=== PATIENT | female | born 1995 | race Asian ===

== ENCOUNTER 2019-09-19 19:09 | Emergency (ER) | payer OTHER ==
[2019-09-19 19:58] VITALS: BP 110/68; PULSE 86; TEMP 98.3; BMI 21.7
--- NOTE | 2019-09-19 20:52 | PDOC ---
History of Present Illness - General Chief Complaint: Hematuria Stated Complaint: HEMATURIA Time Seen by Provider: 09/19/19 20:27 - History of Present Illness Initial Comments: 09/19/19 20:51 23-year-old female without comorbidities presents with dysuria x1 day no systemic symptoms Past History - Past Medical History Allergies/Adverse Reactions: Allergies Allergy/AdvReac Type Severity Reaction Status Date / Time No Known Allergies Allergy Verified 09/19/19 19:57 COPD: No - Psycho Social/Smoking Cessation Hx Smoking History: Never smoked Have you smoked in the past 12 months: No Information on smoking cessation initiated: No Hx Alcohol Use: No Drug/Substance Use Hx: No Review of Systems - Review of Systems Constitutional: No: Fever : Yes: Burning, Dysuria, Frequency. No: Discharge, Hematuria *Physical Exam - Vital Signs Last Vital Signs Temp Pulse Resp BP Pulse Ox 98.3 F 86 18 110/68 100 09/19/19 19:56 09/19/19 19:56 09/19/19 19:56 09/19/19 19:56 09/19/19 19:56 - Physical Exam 09/19/19 20:51 GENERAL: The patient is awake, alert, and fully oriented, in no acute distress. HEAD: Normal with no signs of trauma. EYES: sclera anicteric, conjunctiva clear. ENT: Ears normal tympanic membranes normal oropharynx clear uvula midline NECK: Normal range of motion EXTREMITIES: Normal range of motion, no edema. No clubbing or cyanosis. No cords, erythema, or tenderness. NEUROLOGICAL: Cranial nerves II through XII grossly intact. PSYCH: Normal mood, normal affect. SKIN: Warm, Dry, normal turgor, no rashes or lesions noted. Medical Decision Making - Medical Decision Making 09/19/19 20:57 We will treat for UTI with Macrobid follow-up with primary care physician Discharge - Discharge Information Problems reviewed: Yes Clinical Impression/Diagnosis: UTI (urinary tract infection) Condition: Stable Disposition: HOME - Admission No - Follow up/Referral Referrals: Jesús Sandhu MD [Staff Physician] - - Patient Discharge Instructions Additional Instructions: Please take the antibiotics as directed. Return to the emergency room for worsening symptoms. Without fail follow-up with your primary care physician in 1 to 2 days for further evaluation and treatment options. The Pyridium, will turn your urine orange this is normal on this medication. - Post Discharge Activity
[2019-09-19 20:56] LABS: EPI CELLS 0 /HPF (0-5/HPF); HYALINE CASTS 1 /lpf (0-8); URINE APPEARANCE CLEAR; URINE BACTERIA 608.4 /hpf (NEGATIVE); URINE BILIRUBIN NEGATIVE (NEGATIVE); URINE COLOR YELLOW; URINE GLUCOSE (UA) NEGATIVE (NEGATIVE); URINE KETONE NEGATIVE (NEGATIVE); URINE LEUK ESTERASE 2+ (NEGATIVE); URINE NITRITE NEGATIVE (NEGATIVE); URINE PROTEIN NEGATIVE (NEGATIVE); URINE RBC 12 /hpf (0-4); URINE UROBILINOGEN 0.2 mg/dL (0.2-1.0); URINE WBC 84 /hpf (0-5)
== END 2019-09-19 23:20 | disposition home or self-care (01) ==
LOC: JERFT 19:09
DX: N39.0 Urinary tract infection, site not specified (principal)
CPT/HCPCS: 81003; 84703; 87086; 87186; 99283-25

== ENCOUNTER 2024-01-20 16:22 | Emergency (ER) | payer OTHER ==
[2024-01-20 16:34] VITALS: BP 110/68; PULSE 92; RESP 18; TEMP 97.9; BMI 21.7
[2024-01-20] MEDS: ACETAMINOPHEN 1000 MG/100 ML BAG IVPB ONE (17:50)
[2024-01-20] MEDS: SODIUM CHLORIDE 0.9% 500 ML INFUS.BAG IV ONE (17:50)
[2024-01-20] MEDS: METOCLOPRAMIDE HCL INJECTION 10 MG/2 ML VIAL IVPUSH ONE (17:50)
[2024-01-20] MEDS ORDERED: ACETAMINOPHEN INJECTION 100 ML IVPB ONE (17:58)
[2024-01-20] MEDS ORDERED: METOCLOPRAMIDE HCL INJECTION 10 MG/2 ML VIAL ONE (17:58)
[2024-01-20 18:37] LABS: BASO % 0.5 % (0-2.0); EOS % 12.3 % (0-4.5); HEMATOCRIT 39.4 % (32.4-45.2); HEMOGLOBIN 12.8 GM/dL (10.7-15.3); LYMPH % 32.3 % (8-40); MCH 23.9 pg (25.7-33.7); MCHC 32.4 g/dl (32.0-36.0); MEAN CELL VOLUME 73.6 fl (80-96); MEAN PLT VOLUME 7.4 fl (7.5-11.1); MONO % 12.6 % (3.8-10.2); NEUT % 42.3 % (42.8-82.8); PLATELET COUNT 297 10^3/uL (134-434); RBC 5.35 M/mm3 (3.60-5.2); RDW 14.7 % (11.6-15.6); WHITE BLOOD COUNT 9.5 K/mm3 (4.0-10.0)
[2024-01-20 18:55] LABS: CALCIUM 9.1 mg/dL (8.5-10.1)
[2024-01-20 18:56] LABS: ALBUMIN 3.7 g/dl (3.4-5.0); BLOOD UREA NITROGEN 8.3 mg/dL (7-18)
[2024-01-20 18:59] LABS: CREATININE 0.8 mg/dL (0.55-1.3)
[2024-01-20 19:01] LABS: BILIRUBIN,TOTAL 0.2 mg/dL (0.2-1); TOT PROT 7.5 g/dl (6.4-8.2)
== END 2024-01-20 21:38 | disposition home or self-care (01) ==
LOC: JER 16:22
PROC: 3E033NZ Introduction of Analgesics, Hypnotics, Sedatives into Peripheral Vein, Percutaneous Approach (ICD-10-PCS; principal; 2024-01-20)
PROC: 3E033GC Introduction of Other Therapeutic Substance into Peripheral Vein, Percutaneous Approach (ICD-10-PCS; 2024-01-20)
DX: R94.5 Abnormal results of liver function studies (principal); R91.1 Solitary pulmonary nodule; R07.81 Pleurodynia; R05.9 Cough, unspecified; R06.02 Shortness of breath; M54.2 Cervicalgia; R51.9 Headache, unspecified; G89.29 Other chronic pain; Z20.822 Contact with and (suspected) exposure to COVID-19
CPT/HCPCS: 0241U-QW; 36415; 71275-TC; 80053; 84484; 84703; 85025; 93005; 93010; 99285-25; J0131; Q9967